=== PATIENT | male | born 1970 | race Caucasian/White ===

== ENCOUNTER → 2019-02-09 | Outpatient (CLI) | payer OTHER ==
--- NOTE | 2019-02-09 13:10 | RAD ---
EXAM: Lumbar spine, 5 views. HISTORY: Pain. COMPARISON: None. FINDINGS: 5 views of the lumbar spine are obtained. There is grade 1 anterolisthesis of L4 and L5, measuring 7 mm. There is degenerative endplate remodeling with disc space narrowing at this level. There is degenerative facet arthropathy predominantly at the mid lower lumbar levels. No fracture is seen. IMPRESSION: 1. Degenerative change primarily at L4-L5. There is grade 1 anterolisthesis at this level. 2. No acute osseous finding. Electronically signed by: Mariah Napier MD (02/09/2019 1:07 PM) [facility]
== END | disposition home or self-care (01) ==
LOC: PMG 12:10
PROVIDERS: ATTEND Physician Assistant Medical
DX: M47.26 Other spondylosis with radiculopathy, lumbar region (principal); M48.061 Spinal stenosis, lumbar region without neurogenic claudication
CPT/HCPCS: 72110

== ENCOUNTER → 2019-07-20 | Outpatient (CLI) | payer OTHER ==
--- NOTE | 2019-07-20 15:20 | RAD ---
EXAM: Lumbar spine, flexion and extension. HISTORY: Spondylolisthesis. COMPARISON: 02/09/2019 FINDINGS: Lateral neutral, flexion and extension views of the lumbar spine are obtained. There is grade 1 anterolisthesis of L4 and L5, measuring 10 mm. This is not change between flexion and extension. There is degenerative endplate remodeling with disc space narrowing and osteophytosis at this level. There is advanced facet arthropathy predominantly at L4-L5 and L5-S1. No fracture is seen. IMPRESSION: 1. Grade 1 anterolisthesis of L4 on L5 which does not appear to change between flexion and extension. 2. Degenerative change primarily at L4-L5, and to a lesser extent, L5-S1. Electronically signed by: Mariah Napier MD (07/20/2019 3:17 PM) [facility]
== END | disposition home or self-care (01) ==
LOC: DXRAD 14:45
PROVIDERS: ATTEND Neurological Surgery
DX: M43.16 Spondylolisthesis, lumbar region (principal); M47.817 Spondylosis without myelopathy or radiculopathy, lumbosacral region; M48.061 Spinal stenosis, lumbar region without neurogenic claudication
CPT/HCPCS: 72100